=== PATIENT | male | born 1960 | race Caucasian/White ===

== ENCOUNTER 2017-07-07 11:54 | Emergency (ER) | payer BC ==
[~2017-07-07] VITALS: Ht 182.9 cm; Wt 129.5 kg
[~2017-07-07 11:54] MED LIST: COUMADIN 5MG5 MG/TAB PO; LOPRESSOR 225 MG/TAB PO; PRINIVIL20 MG PO; TAMBOCOR150 MG PO; ULTRAM 50MG TAB50 MG PO
[2017-07-07 11:58] VITALS: BP 146/78; TEMP 99.1
[2017-07-07] MEDS ORDERED: TENORMIN 2525 MG/TAB PO (12:02)
[2017-07-07] MEDS ORDERED: CELEXA 20MG20 MG/TAB PO (12:20)
[2017-07-07] MEDS ORDERED: PRAVACHOL80 MG PO (12:24)
[2017-07-07 13:00] LABS: COLLECTION METHOD CLEAN CATCH
[2017-07-07 13:04] LABS: BASO # 0.1 (0.0-0.2); BASO % 0.4 % (0.0-2.0); EOS % 0.1 % (0-4.0); GRAN # 11.4 (1.4-6.5); GRAN % 85.6 % (42.2-75.2); HEMATOCRIT 47.2 % (42.0-52.0); HEMOGLOBIN 15.6 g/dl (13.5-18.0); LYMPH % 7.5 % (20.0-51.0); MEAN CELL VOLUME 88 fl (80.0-100.0); MEAN CORPUSCULAR HEMOGLOBIN 29 pg (27.0-31.0); MEAN CORPUSCULAR HGB CONC 33 g/dl (33.0-37.0); MEAN PLATELET VOLUME 9.5 fl (7.4-10.4); MONO # 0.8 (0.1-0.6); MONO % 5.9 % (1.7-9.3); PLATELET COUNT 246 K/mm3 (130-400); RED BLOOD COUNT 5.38 M/mm3 (4.20-5.60); REDCELL DISTRIBUTION WIDTH-CV 13.3 % (11.5-14.5)
[2017-07-07 13:14] LABS: MUCOUS Present /lpf; PH 5 (5-8); SQUAMOUS EPITHELIAL 0-2 /hpf; URINE APPEARANCE Clear; URINE BACTERIA Rare /hpf; URINE BILIRUBIN Negative (NEGATIVE); URINE BLOOD 3+ (NEGATIVE); URINE COLOR Yellow; URINE GLUCOSE Negative (NEGATIVE); URINE KETONE Negative (NEGATIVE); URINE LEUKOCYTE ESTERASE 1+ (NEGATIVE); URINE NITRATE Negative (NEGATIVE); URINE PROTEIN(semi-quant) Negative (NEGATIVE); URINE RBC >50 /hpf; URINE UROBILINOGEN Negative (NEGATIVE)
[2017-07-07 13:21] LABS: ALBUMIN 4.1 gm/dL (3.5-5.0); BILIRUBIN,TOTAL 0.7 mg/dL (0.0-1.0); CALCIUM 9.6 mg/dL (8.4-10.2); CREATININE, serum 1.12 mg/dL (0.66-1.25); POTASSIUM 4.6 mmol/L (3.4-5.0); TOTAL PROTEIN 7.3 gm/dL (6.4-8.2)
[2017-07-07] MEDS ORDERED: CEPHALEXIN500 M1 PO (13:33)
[2017-07-07] MEDS ORDERED: ZOFRAN 4MG T4 MG/TAB PO (13:34)
[2017-07-07] MEDS ORDERED: NORCO 325 MG-51 TAB PO (13:34)
[2017-07-07] MEDS ORDERED: ULTRAM 50MG TAB50 MG PO (13:48)
[2017-07-07 14:52] VITALS: PULSE 59
== END 2017-07-07 14:50 | disposition home or self-care (01) ==
LOC: COL.ER 11:54
PROVIDERS: Emergency Medicine
DX: N20.1 Calculus of ureter (principal); N23 Unspecified renal colic; Z87.442 Personal history of urinary calculi; Z98.890 Other specified postprocedural states
CPT/HCPCS: J0696; J1885; J2270; J2550; J7030

== ENCOUNTER 2019-08-09 05:04 | Day surgery (SDC) | payer BC ==
[~2019-08-09] VITALS: Ht 180.3 cm; Wt 140.0 kg
[~2019-08-09 05:04] MED LIST changes: +APRESOLINE50 MG PO; +CELEXA 20MG20 MG/TAB PO; +CELEXA40 MG PO; +CEPHALEXIN500 M1 PO; +CORDARONE200 MG/TAB PO; +COREG 6.256.25 MG/TA PO; +CRESTOR40 MG PO; +GLUCOTROL10 MG PO; +MOBIC15 MG PO; +NORCO 325 MG-51 TAB PO; +PRAVACHOL80 MG PO; +PRILOTC PO; +TENORMIN 2525 MG/TAB PO; +ZETIA 10MG TAB10 MG PO; +ZOFRAN 4MG T4 MG/TAB PO
[2019-08-09 05:48] VITALS: BP 149/71; PULSE 58; TEMP 98.6
[2019-08-09] MEDS ORDERED: MOBIC15 MG PO (06:44)
[2019-08-09] MEDS ORDERED: PYRIDIUM 100MG100 MG PO ×2 (06:45→08:52)
[2019-08-09] MEDS ORDERED: OMNICEF 300MG300 MG PO (06:45)
[2019-08-09 08:32] VITALS: BP 111/58; PULSE 66
--- NOTE | 2019-08-09 08:32 | NUR ---
Patient returns to room 8 per cart from surgery accompanied by Darrion ROGERS and Luc Parry CRNA with LMA in place and oxygen mask at 8L. Temp 98.0 and sats 96% on mask. IV fluids infusing and siderails up x2. Beginning to arouse to verbal stimuli. LMA removed by Luc Parry CRNA.
[2019-08-09 08:47] VITALS: BP 107/61; PULSE 66
--- NOTE | 2019-08-09 08:47 | NUR ---
Awake and sitting up on cart. Oxygen removed by patient. Sipping on water and Pepsi. Denies pain. IV fluids infusing and siderails up x2.
[2019-08-09] MEDS ORDERED: NORCO 325 MG-51 TAB PO (08:51)
[2019-08-09 09:02] VITALS: BP 121/72; PULSE 63
--- NOTE | 2019-08-09 09:02 | NUR ---
Voids 500cc's orange urine and urine strained. No stones noted.
[2019-08-09 09:17] VITALS: BP 117/69; PULSE 61
--- NOTE | 2019-08-09 09:17 | NUR ---
Eating toast and sipping on coffee. Denies pain or nausea.
--- NOTE | 2019-08-09 09:30 | NUR ---
IV discontinued and patient dresses self.
--- NOTE | 2019-08-09 09:45 | NUR ---
Dismissal instructions signed and provided urine strainer and collecting container to take to the office if stone particles collected. Provided follow up appointment date and time.
--- NOTE | 2019-08-09 09:47 | NUR ---
Patient dismissed to home driven by daughter and taken to the front door per wheelchair by this RN and assisted into car with instructions in hand.
== END 2019-08-09 09:47 | disposition home or self-care (01) ==
LOC: SDCO 05:04
DX: N20.1 Calculus of ureter (principal); I48.91 Unspecified atrial fibrillation; I10 Essential (primary) hypertension; E11.9 Type 2 diabetes mellitus without complications; Z79.84 Long term (current) use of oral hypoglycemic drugs; G47.33 Obstructive sleep apnea (adult) (pediatric); K21.9 Gastro-esophageal reflux disease without esophagitis; F32.9 Major depressive disorder, single episode, unspecified; F17.220 Nicotine dependence, chewing tobacco, uncomplicated; E66.01 Morbid (severe) obesity due to excess calories; Z68.41 Body mass index [BMI] 40.0-44.9, adult; Z86.711 Personal history of pulmonary embolism; Z79.899 Other long term (current) drug therapy; Z82.49 Family history of ischemic heart disease and other diseases of the circulatory system; Z80.9 Family history of malignant neoplasm, unspecified; Z95.818 Presence of other cardiac implants and grafts
CPT/HCPCS: J0690; J2704; J7030

== ENCOUNTER 2019-08-16 14:44 | Day surgery (SDC) | payer BC ==
[2019-08-16] VITALS (10 sets, daily range): BP systolic 116–156; BP diastolic 72–88; PULSE 55–90; TEMP 97.3–99.6
[~2019-08-16] VITALS: Ht 180.3 cm; Wt 143.2 kg
[~2019-08-16 14:44] MED LIST changes: +OMNICEF 300MG300 MG PO; +PYRIDIUM 100MG100 MG PO
[2019-08-16] MEDS ORDERED: EXCEDRIN1 TAB PO (15:17)
--- NOTE | 2019-08-16 16:58 | NUR ---
Pt awakens and c/o pain to lower back and left groin. Pt rates pain 6-10/19. Jayant YEAGER notified. Orders given. Morphine 5mg IVSP given. Pt voids 200ml of yellow urine. Urine strained with no stone observed. Pt back to bed. Call light within reach. Side rails up x2. O2 sat monitor on pt.
[2019-08-17] VITALS (14 sets, daily range): BP systolic 109–164; BP diastolic 48–83; PULSE 55–69; TEMP 97.4–99.7
--- NOTE | 2019-08-17 04:30 | NUR ---
Received report from SUE Rocha. Pt was alert and oriented when he arrived to the floor. He was able to tolerate ice chips. His vitals were all within normal limits. Pt lungs sounds were clear and his heart sounds were normal S1 and S2 sounds. Pt stated that his pain was better than it was before he was given something for pain. Pt requested to sit on the side of the bed at this time and he did. Pt was also assisted the the bathroom. Pt was a standby assist. Pt urine was strained at this time. Pt output was 150. Pt did complain of a lot of pain while urinating. Pt urine was tinged red. Pt is currently back in bed sitting on the side of the bed. Pt has his call light within reach and his bed is in lowest position.
--- NOTE | 2019-08-17 04:45 | NUR ---
Pt is in very pain at this time. Pt is also having nausea at this time. Pt was given Morphine for pain and he was given something for nausea at this time as well. Pt is currently sitting up in bed. I am at pt bedside trying to make him as comfortable as possible. Pt stated that he has never had this much pain with the previous surgeries that he has had.
--- NOTE | 2019-08-17 06:21 | NUR ---
NOTIFIED RN THAT PT WAS HAVING DECREASED RATE AND INCREASED ENDTIDAL CO2. PT SPO2 WAS STABLE AND EASY TO WAKE.
--- NOTE | 2019-08-17 07:30 | NUR ---
Pt is currently sitting up in his bed at this time. Pt had a really rough night with pain. Pt began having pain around 2144. Pt was given [place] for pain at this time. Pt resting for about 30 minutes and stated that he still was in pain . Pt was given Phenazopyridine at this time, this still did not help. Pt did state that this was a little better. Pt and I ambulated around the [employer] [facility] and down the [address]. Pt stated that this felt better but he still was in pain. Pt got back in bed and we tried warm blankets over his abdomen at this time. Pt rest for a while. Pt was given another dose of [place] and this did not seem to work. Dr. Watters was called and he gave an order for Morphine. Pt was given 2 mg of Morphine aroung 0400, pt stated this did not work at all. Pt was given a second does of Morphine and the pt was also given Zofran at this time because he vomited. The charge nurse called Dr. Watters and he gave orders for a REFERRAL AND INFORMATION AIDE PUMP at this time. Charge nurse set the REFERRAL AND INFORMATION AIDE Pump up at this time. Pt stated that after being on the REFERRAL AND INFORMATION AIDE pump his pain was much better. During shift change around 0730 pt was having some nausea at this time. He stated he tried to eat his breakfast tray and he was very nauseated. Pt was assisted with cleaning himself up at this time. Report was given to SUE Duran. Pt has his call light within reach and his bed is in lowest position.
--- NOTE | 2019-08-17 16:23 | NUR ---
Nursing Staffing Coordinator attempted contact with patient by room phone and cell phone. SW will follow up tomorrow.
--- NOTE | 2019-08-17 19:00 | NUR ---
Pt arrived to the floor at 1855. Pt was alert and awake at this time. SUE Duran gave me report on the patient as he was rolling in from PACU. Pt stated that he did now have any pain at this time. Pt used voided out 50ml of urine at this time and urine was strained. Pt is currently sitting up in bed and has his call light within reach.
--- NOTE | 2019-08-17 20:39 | NUR ---
patient had few episode of nausea. admin zofran. ACQUISITION ASSOCIATE was stopped 1130Am when patient was taken to surgery. patient was brought back because he ate breakfast. procedurew rescheduled for pm. Patient cystoscopy with stent placement on left side. report given to NIGHT RN.
[2019-08-18 00:29] VITALS: BP 126/61; PULSE 64; TEMP 98.7
--- NOTE | 2019-08-18 03:42 | NUR ---
Pt has had a very good night. Pt has been ambulating down the hallway. Pt has had no compaints of pain at this time. Pt was able to eat a dinner box tonight, and tolerated it very well. Pt has been drinking fluids well all night. Pt IV is currently INT. Pt is now sitting up in his chair drinking coffee at this time. His call light is within reach
[2019-08-18 04:37] VITALS: BP 131/74; PULSE 58; TEMP 98.9
--- NOTE | 2019-08-18 07:03 | NUR ---
Reported off to SUE Huffman. Pt is currently sitting up in the chair. Pt has been ambulating the halls this morning.
--- NOTE | 2019-08-18 07:28 | NUR ---
REPORT FROM JERALD ROGERS.
[2019-08-18 08:06] VITALS: BP 132/88; PULSE 56; TEMP 98.4
== END 2019-08-18 08:40 | disposition home or self-care (01) ==
LOC: SDCO 14:44 → JCC 14:44 → SDCO 15:45 → JCC 21:05 → SDCO 08-18 08:40
DX: N13.2 Hydronephrosis with renal and ureteral calculous obstruction (principal); I10 Essential (primary) hypertension; E11.9 Type 2 diabetes mellitus without complications; G47.33 Obstructive sleep apnea (adult) (pediatric); I48.91 Unspecified atrial fibrillation; K21.9 Gastro-esophageal reflux disease without esophagitis; I49.3 Ventricular premature depolarization; F32.9 Major depressive disorder, single episode, unspecified; F17.220 Nicotine dependence, chewing tobacco, uncomplicated; E66.01 Morbid (severe) obesity due to excess calories; Z68.41 Body mass index [BMI] 40.0-44.9, adult; Z79.84 Long term (current) use of oral hypoglycemic drugs; Z80.9 Family history of malignant neoplasm, unspecified; Z82.49 Family history of ischemic heart disease and other diseases of the circulatory system; Z79.899 Other long term (current) drug therapy
CPT/HCPCS: OP; C1769; C2617; J0690; J1170; J2250; J2270; J2405; J2704; J3010; J7030; Q9967

== ENCOUNTER 2019-11-16 05:46 | Day surgery (SDC) | payer BC ==
[~2019-11-16] VITALS: Ht 182.9 cm; Wt 139.5 kg
[2019-11-16] VITALS (8 sets, daily range): BP systolic 109–125; BP diastolic 59–70; PULSE 55–65; TEMP 97.7–98.8
[~2019-11-16 05:46] MED LIST changes: +EXCEDRIN1 TAB PO
[2019-11-16] MEDS ORDERED: PRINIVIL20 MG PO (06:23)
[2019-11-16] MEDS ORDERED: APRESOLINE50 MG PO (06:23)
[2019-11-16] MEDS ORDERED: COREG 6.256.25 MG/TA PO (06:24)
[2019-11-16] MEDS ORDERED: MOBIC15 MG PO (06:24)
[2019-11-16] MEDS ORDERED: CELEXA40 MG PO (06:24)
[2019-11-16] MEDS ORDERED: CORDARONE200 MG/TAB PO (06:24)
[2019-11-16] MEDS ORDERED: GLUCOTROL10 MG PO (06:25)
[2019-11-16] MEDS ORDERED: CRESTOR40 MG PO (06:25)
[2019-11-16] MEDS ORDERED: ZETIA 10MG TAB10 MG PO (06:25)
[2019-11-16] MEDS ORDERED: GLUCOPHAGE500 MG/TAB PO (06:26)
[2019-11-16] MEDS ORDERED: LASIX 20MG TABL20 MG PO (06:26)
[2019-11-16] MEDS ORDERED: ASPIRIN 81M81 MG/TA2 PO (06:26)
[2019-11-16] MEDS ORDERED: PRILOTC PO (06:26)
[2019-11-16] MEDS ORDERED: PRALUENT P75 MG/1 ML SQ (06:27)
--- NOTE | 2019-11-16 08:12 | NUR ---
Patient to the OR with SUE Wells at this time.
--- NOTE | 2019-11-16 09:45 | NUR ---
Patient arrives to [facility] via cart, accompanied by FINANCE EFFECTIVENESS MANAGER Sarah. He is drowsy, but awakens easily and complains of mild pain. He received dilaudid in PACU for pain and is on 2L nasal cannula oxygen. He requests to go to the bathroom on arrival to his room. He ambulates with 1:1 assist and steady gait to the restroom, voids a large amount of urine (bloody at first, then clear/pink) with some mild pain, and returns to room. Monitoring is applied - VSS on 2L nasal cannula. He is resting, eyes closed. His daughter is not in the waiting room. Will continue to monitor.
--- NOTE | 2019-11-16 10:00 | NUR ---
VSS on 2 L nasal cannula. He is still very sleepy. His daughter arrives and is brought back to his room. He is offered and receives juice and a muffin.
--- NOTE | 2019-11-16 10:01 | NUR ---
Attempted to schedule post-op appointment for patient on 11/29/19 as ordered. Per the office, they will contact the patient with date/time of post-op appointment.
--- NOTE | 2019-11-16 10:30 | NUR ---
Patient ambulates to the restroom, voids, and returns to room. He is more awake. He requests and receives another muffin and some water. He is tolerating PO well.
--- NOTE | 2019-11-16 11:00 | NUR ---
VSS and WNL on room air. Receives a [place] pain tablet for pain.
--- NOTE | 2019-11-16 11:50 | NUR ---
Patient has met discharge criteria. Discharge instructions are discussed. He denies any questions and verbalizes understanding. PIV is removed with catheter intact and hemostasis achieved. He dresses with staff assistance. He is escorted to the exit via wheelchair by staff. He is discharged to home with ride in private vehicle at 1150.
== END 2019-11-16 11:50 | disposition home or self-care (01) ==
LOC: SDCO 05:46
DX: N20.1 Calculus of ureter (principal); I48.91 Unspecified atrial fibrillation; I49.9 Cardiac arrhythmia, unspecified; E11.9 Type 2 diabetes mellitus without complications; I10 Essential (primary) hypertension; K21.9 Gastro-esophageal reflux disease without esophagitis; F17.220 Nicotine dependence, chewing tobacco, uncomplicated; E78.5 Hyperlipidemia, unspecified; Z79.84 Long term (current) use of oral hypoglycemic drugs; Z80.9 Family history of malignant neoplasm, unspecified; Z82.49 Family history of ischemic heart disease and other diseases of the circulatory system; Z79.899 Other long term (current) drug therapy
CPT/HCPCS: C1769; C2617; J0690; J1100; J1170; J1885; J2405; J2704; J3010; J7030; Q9967